=== PATIENT | female | born 1935 | race Caucasian/White ===

== ENCOUNTER 2016-10-25 08:16 | Emergency (ER) | payer MEDICARE, OTHER ==
[~2016-10-25] VITALS: Ht 162.6 cm; Wt 73.9 kg
[~2016-10-25 08:16] MED LIST: ACIDOPHILUS1 EAC1 PO; ADVAIR DIS14 PUFF/IN INH; ASPIRIN81 MG PO; CENTRUM SILVER1 EAC1 PO; COZAAR100 MG PO; FISH OIL1 GM PO; LIPITOR40 MG PO; LOPRESSOR25 MG PO; OS-CAL 500+D31 EAC1 PO; OSTEO BI-FLEX1 EAC1 PO; PROAIR HFA8.5 GM INH; PROTONIX40 MG PO
== END 2016-10-25 12:30 | disposition short-term general hospital (02) ==
LOC: ER 08:16
DX: R06.00 Dyspnea, unspecified (principal); I25.10 Atherosclerotic heart disease of native coronary artery without angina pectoris; Z95.1 Presence of aortocoronary bypass graft; J44.9 Chronic obstructive pulmonary disease, unspecified; I10 Essential (primary) hypertension; Z95.4 Presence of other heart-valve replacement; Z79.82 Long term (current) use of aspirin; Z79.899 Other long term (current) drug therapy; Z88.8 Allergy status to other drugs, medicaments and biological substances; E78.00 Pure hypercholesterolemia, unspecified
CPT/HCPCS: Q9967

== ENCOUNTER → 2016-10-28 | Outpatient (CLI) | payer MEDICARE, OTHER | END | disposition short-term general hospital (02) | LOC: CLCARD 09:36 | DX: R06.02 Shortness of breath (principal); R53.83 Other fatigue; R42 Dizziness and giddiness; I25.810 Atherosclerosis of coronary artery bypass graft(s) without angina pectoris; I10 Essential (primary) hypertension; E78.5 Hyperlipidemia, unspecified; J44.9 Chronic obstructive pulmonary disease, unspecified; I27.2 Other secondary pulmonary hypertension; Z88.8 Allergy status to other drugs, medicaments and biological substances ==

== ENCOUNTER → 2016-11-04 | Outpatient (CLI) | payer MEDICARE, OTHER | END | disposition short-term general hospital (02) | LOC: CLCARD 09:09 | DX: I25.10 Atherosclerotic heart disease of native coronary artery without angina pectoris (principal); J44.9 Chronic obstructive pulmonary disease, unspecified; I10 Essential (primary) hypertension; E78.5 Hyperlipidemia, unspecified ==